=== PATIENT | female | born 1965 | race Caucasian/White ===

== ENCOUNTER 2017-09-12 08:15 | Outpatient (CLI) | payer BC | END 2017-09-12 08:16 | disposition home or self-care (01) | LOC: LABBT 08:15 | PROVIDERS: ATTEND Internal Medicine Cardiovascular Disease | DX: Z01.818 Encounter for other preprocedural examination (principal); I47.1 Supraventricular tachycardia ==

== ENCOUNTER 2017-09-15 06:07 | Day surgery (SDC) | payer BC ==
[2017-09-12 08:40] VITALS: BMI 52.8
[2017-09-15] MEDS ORDERED: Lidocaine 1% w/Epinephrine 1:200K 30 ML VIAL ONE (07:01)
[2017-09-15] MEDS ORDERED: CEFAZOLIN/Water 2 GM/20 ML SYRINGE ONE (11:16)
--- NOTE | 2017-09-15 16:44 | CCL ---
CARDIOLOGY PROCEDURE NOTE: Date: 09/15/17 PREPROCEDURE DIAGNOSIS: Syncope and SVT. PROCEDURE PERFORMED: Removal of implantable loop recorder (LINQ). SUMMARY: Ms. Ibrara is a pleasant 52-year-old female who comes to the catheterization lab for rem oval of a LINQ implantable loop recorder. She had this placed for syncope and was found to have SVT w hich was nonsustained mostly. She was brought to the catheterization lab, prepped and draped in the u sual sterile fashion, consents were signed and verified, and timeout was performed. We then palpated where the device and we made a small incision with a scalpel on top of the device. We were able to gr ab it, but it kept moving in the fatty tissue. There was no capsule formed. We then had to put her un rosio the fluoroscopy machine to be able to see the device. We could see and moving around and we were able to push it up to where the hemostats and we were able to grab it. We were unable to pull it thro ugh the original incision, so we had to make a second incision where it was successfully pulled out w ithout any further issue. Dermabond was applied to the second incision. On the first incision, we put one small suture which will have to be removed in about a week or two. RECOMMENDATIONS Follow up in 1-2 weeks for removal of suture.
== END 2017-09-15 12:06 | disposition home or self-care (01) ==
LOC: CCL 06:07
PROVIDERS: ATTEND Internal Medicine Cardiovascular Disease
PROC: 0JPT02Z Removal of Monitoring Device from Trunk Subcutaneous Tissue and Fascia, Open Approach (ICD-10-PCS; principal; 2017-09-15)
DX: I47.1 Supraventricular tachycardia (principal); Z98.890 Other specified postprocedural states
CPT/HCPCS: 33284

== ENCOUNTER 2017-10-02 08:37 | Outpatient (CLI) | payer BC | END 2017-10-02 08:38 | disposition home or self-care (01) | LOC: BICMAMMO 08:37 | PROVIDERS: ATTEND Family Medicine | DX: Z12.31 Encounter for screening mammogram for malignant neoplasm of breast (principal); Z80.3 Family history of malignant neoplasm of breast | CPT/HCPCS: 77063; 77067 ==

== ENCOUNTER 2018-10-08 11:32 | Outpatient (CLI) | payer BC ==
--- NOTE | 2018-10-08 13:08 | MMO ---
Bilateral MAMMO Bilat Screen [facility]. CLINICAL HISTORY: Patient is 53 years old and is seen for screening. The patient has the following family history of breast cancer: mother. The patient has no personal history of cancer. VIEWS: The views performed were: bilateral craniocaudal with tomosynthesis and bilateral mediolateral oblique with tomosynthesis. FILMS COMPARED: The present examination has been compared to prior imaging studies performed at [facility] on 07/28/2014, 08/02/2015, 08/22/2016 and 10/02/2017. MAMMOGRAM FINDINGS: There are scattered fibroglandular densities. There are multiple stable masses of varying size with circumscribed margins seen in both breasts. There are no suspicious masses, suspicious calcifications, or new areas of architectural distortion. IMPRESSION: THERE IS NO MAMMOGRAPHIC EVIDENCE OF MALIGNANCY. A ROUTINE FOLLOW-UP MAMMOGRAM IN 1 YEAR IS RECOMMENDED. THE RESULTS OF THIS EXAM WERE SENT TO THE PATIENT. ACR BI-RADS Category 2 - Benign finding MAMMOGRAPHY NOTE: 1. A negative mammogram report should not delay a biopsy if a dominant of clinically suspicious mass is present. 2. Approximately 10% to 15% of breast cancers are not detected by mammography. 3. Adenosis and dense breasts may obscure an underlying neoplasm.
== END 2018-10-08 11:33 | disposition home or self-care (01) ==
LOC: BICMAMMO 11:32
PROVIDERS: ATTEND Family Medicine
DX: Z12.31 Encounter for screening mammogram for malignant neoplasm of breast (principal); Z80.3 Family history of malignant neoplasm of breast
CPT/HCPCS: 77063; 77067

== ENCOUNTER 2019-01-11 07:31 | Day surgery (SDC) | payer BC ==
[2019-01-11 08:12] LABS: #Eosinphils 0.1 thou/uL (0.0-0.7); #Lymphocytes 2.1 thou/uL (1.20-3.40); #Monocytes 0.3 thou/uL (0.11-0.59); #Neutrophils 3.8 thou/uL (1.40-6.50); %Basophils 0.4 % (0.0-1.0); %Eosinophils 2.3 % (0.0-10.0); %Lymphocytes 32.9 % (21.0-51.0); %Monocytes 4.9 % (0.0-10.0); %Neutrophils 59.4 % (42.0-75.0); Hemoglobin 15.2 g/dL (12.0-16.0); Mean Corpuscular HGB CONC 33.2 g/dL (32.0-36.0); Mean Corpuscular Hemoglobin 28.4 pg (27.0-31.0); Mean Corpuscular Volume 85.5 fL (78.0-98.0); Mean Platelet Volume 8.9 fL (7.4-10.4); Platelet Count 268 thou/uL (130-400); RBC Distribution Width 12.7 % (11.5-14.5); Red Blood Cell (RBC) Count 5.35 mill/uL (4.20-5.40); White Blood Cell (WBC) Count 6.4 thou/uL (4.8-10.8)
[2019-01-11 08:28] LABS: ALT (SGPT) 23 U/L (8-55); AST (SGOT) 19 U/L (5-34); Albumin 4.5 g/dL (3.5-5.0); Alkaline Phosphatase 118 U/L (40-150); Anion Gap 14 mmol/L (10-20); BUN (Urea Nitrogen) 17 mg/dL (9.8-20.1); Bilirubin, Total 0.5 mg/dL (0.2-1.2); Calc. Creatinine Clearance 0 mL/min (70-130); Calcium 9.7 mg/dL (7.8-10.44); Carbon Dioxide 24 mmol/L (22-29); Chloride 106 mmol/L (98-107); Estimated GFR-MDRD 75; Globulin 3.2 g/dL (2.4-3.5); Glucose 115 mg/dL (70-105); Lipase 20 U/L (8-78); Potassium 4.6 mmol/L (3.5-5.1); Protein, Total 7.7 g/dL (6.0-8.3); Sodium 139 mmol/L (136-145)
[2019-01-11 08:44] LABS: Bilirubin Negative (Negative); Blood, Urine Negative (Negative); Clarity Clear (Clear); Glucose, Urine (Dipstick) Normal (Negative); Leukocyte Negative Leu/uL (Negative); Nitrite Negative (Negative); Protein, Urine (Dipstick) 10 mg/dL (Neg-Trace); Urobilinogen Normal mg/dL (Less than 2)
[2019-01-11] MEDS ORDERED: Ondansetron PF 4 MG/2 ML Vial ONE ×2 (09:32→13:59)
[2019-01-11] MEDS ORDERED: Ketorolac Tromethamine 30 MG/ML VIAL ONE ×2 (09:32→13:14)
--- NOTE | 2019-01-11 10:19 | ULT ---
Right upper quadrant ultrasound: 01/11/2019 COMPARISON: None HISTORY: Right upper quadrant pain TECHNIQUE: Multiplanar grayscale sonographic imaging of the right upper quadrant obtained. FINDINGS: The pancreas is grossly unremarkable, partially obscured by bowel gas. The hepatic parenchyma is heterogeneous and echogenic, suggesting steatosis. This limits assessment f or focal liver lesion and intrahepatic biliary dilatation. The common bile duct size is upper limits of normal, measuring 6-7 mm. Shadowing calcified stones are noted within the gallbladder. There is no gallbladder wall thickening or pericholecystic fluid appreciated. However, the glass blowing lathe operator reports a positive Molina's sign Right kidney measures 11.5 cm in craniocaudal dimension and demonstrates no evidence for stone, hydro nephrosis, or mass lesion. IMPRESSION: Cholelithiasis. As the glass blowing lathe operator reports a positive Molina's sign, acute cholecystitis cannot be excluded. Common bile duct is upper limits of normal in diameter. Findings suggesting hepatic steatosis. If further imaging assessment of the gallbladder is clinically warranted, follow-up hepatobiliary sca n suggested.
[2019-01-11] MEDS ORDERED: Levofloxacin 500 mg/D5W 100 ml Premix Bag ONE (12:21)
[2019-01-11] MEDS ORDERED: Fentanyl 100 MCG/2 ML VIAL ONE ×2 (13:06→13:15)
[2019-01-11] MEDS ORDERED: Bupivacaine HCl 0.5%/Epinephrine 1:200,000/PF 30 ml Vial ONE (13:08)
[2019-01-11] MEDS ORDERED: Scopolamine 1.5 mg/72 hour Patch ONE (13:20)
--- NOTE | 2019-01-11 13:21 | HP ---
HISTORY OF PRESENT ILLNESS: Maria Teresa Ibarra is a 53-year-old female presenting with a third episode of right upper quadrant pain, back radiation. This episode was especially severe and she presents for treatment. She has found in emergency room on ultrasound to have a normal caliber common bile duct, normal liver function test, but multiple gallstones. Her white count was normal 6.4, hemoglobin 15.2. The patient is . She is employed at [employer]. ALLERGIES: NONE. TOBACCO: None. ALCOHOL: None. MEDICATIONS: 1. Omeprazole. 2. Singulair. 3. Losartan/hydrochlorothiazide 100/25 daily. 4. Diltiazem daily. 5. ProAir HFA. PAST SURGICAL HISTORY: Total abdominal hysterectomy, bilateral salpingo-oophorectomy. She is up-to-date on her colonoscopies. PAST MEDICAL HISTORY: Asthma, obesity, [id number] diabetes mellitus, hypertension. REVIEW OF SYSTEMS: Ten-point noncontributory. PHYSICAL EXAMINATION: VITAL SIGNS: Blood pressure 140/72, respiratory rate 18, heart rate 74. HEAD, EARS, EYES, NOSE, AND THROAT: Unremarkable. Sclerae nonicteric. SKIN: Nonjaundiced. EXTREMITIES: Unremarkable. Palpable pulses. No ankle edema. LUNGS: Clear to auscultation. No wheezing. CARDIAC: Regular rate and rhythm without murmur, rub, or gallop. ABDOMEN: Soft. Tenderness in the right upper quadrant with guarding. Positive Molina's. ASSESSMENT AND PLAN: Cholecystitis and cholelithiasis. Recommend laparoscopic video cholecystectomy. Risks of infection, bleeding, visceral and biliary injury discussed. She consents. Job ID: [id number]
[2019-01-11] MEDS ORDERED: ePHEDrine 50 MG/ML VIAL ONE (13:59)
[2019-01-11] MEDS ORDERED: PROPOFOL 200 MG/20 ML VIAL ONE (13:59)
[2019-01-11] MEDS ORDERED: Lidocaine 1% PF 5 ML VIAL ONE (13:59)
[2019-01-11] MEDS ORDERED: Rocuronium Bromide 10 MG/ML (10ML VIAL) ONE (13:59)
[2019-01-11] MEDS ORDERED: Glycopyrrolate 0.2 MG/ML 5 ML SYRINGE ONE (13:59)
--- NOTE | 2019-01-11 20:20 | OP ---
DATE OF PROCEDURE: 01/11/2019 PREOPERATIVE DIAGNOSES: Acute cholecystitis and cholelithiasis; chronic cholecystitis; morbid obesity. POSTOPERATIVE DIAGNOSES: Acute cholecystitis and cholelithiasis; chronic cholecystitis; morbid obesity. PROCEDURE PERFORMED: Laparoscopic video cholecystectomy. ANESTHESIA: General and local 0.5% Marcaine with epinephrine 30 mL. DESCRIPTION OF PROCEDURE: The patient was taken to the operating room, where under general anesthesia, abdomen was prepared with ChloraPrep and draped in routine fashion. The patient is morbidly obese and has a dependent pannus. A supraumbilical incision was made. Pneumoperitoneum to 15 mmHg was obtained with a Veress needle, replacing with a 5 port. Right subxiphoid incision was made and 11 port was placed. Right subcostal incision was made at midclavicular entrance line and a 5 port was placed. The gallbladder was acutely inflamed and distended. Fundus was grasped at the cephalad. Infundibulum was grasped and reflected laterally. Cystic artery and duct dissected free. Critical view obtained. Cystic artery and duct double clipped proximally and divided, and gallbladder dissected free from liver bed obtaining good hemostasis prior to division of the final peritoneal attachments. Gallbladder and contents were removed and submitted to Pathology. Large stone had to be fragmented and removed. Good hemostasis ensured with cautery. Irrigant and pneumoperitoneum were evacuated. All instruments were removed. All skin incisions were approximated with interrupted subdermal 4-0 Monocryl and [place] glue applied. Job ID: [id number]
== END 2019-01-11 16:52 | disposition home or self-care (01) ==
LOC: ERS 07:31 → SDC 12:24
PROVIDERS: ATTEND Specialist
PROC: 0FT44ZZ Resection of Gallbladder, Percutaneous Endoscopic Approach (ICD-10-PCS; principal; 2019-01-11)
DX: K80.13 Calculus of gallbladder with acute and chronic cholecystitis with obstruction (principal); I10 Essential (primary) hypertension; E11.9 Type 2 diabetes mellitus without complications; J45.909 Unspecified asthma, uncomplicated; E66.01 Morbid (severe) obesity due to excess calories; Z68.42 Body mass index [BMI] 45.0-49.9, adult; Z79.84 Long term (current) use of oral hypoglycemic drugs; Z79.899 Other long term (current) drug therapy
CPT/HCPCS: 36415; 76705; 80053; 81003; 83690; 85025; 88304; 93005; J0131; J0670; J1885; J1956; J2001; J2405; J2704; J3010; J3490

== ENCOUNTER 2019-05-11 07:49 | Outpatient (CLI) | payer BC ==
--- NOTE | 2019-05-11 08:51 | MRI ---
MR the lumbar spine without contrast: 05/11/2019 History: Low back pain with right lower extremity radiculopathy COMPARISON: 03/13/2017 TECHNIQUE: Multiplanar multisequence MR images were obtained of lumbar spine without IV contrast FINDINGS: On the basis of 5 lumbar type vertebral bodies, conus medullaris terminates at [id number] level. Sagittal STIR imaging demonstrates no focal area of osseous marrow edema. At T11-T12 there is disc sp ly narrowing with disc desiccation, mild disc bulge, and mild anterior osteophyte formation. Bilateral facet hypertrophy noted as well, with mild bilateral neural foraminal stenosis and mild keysha tral canal stenosis. T12-L1:Mild bilateral facet hypertrophy. No significant central canal or neural foraminal stenosis. L1-2:Mild bilateral facet hypertrophy. Anterior osteophyte formation. No significant central canal or neural foraminal stenosis. L2-3:Mild bilateral facet hypertrophy, right greater than left. No significant central canal or neura l foraminal stenosis. L3-4:Disc space narrowing and disc desiccation with mild disc bulge. No significant central canal ольга nosis. Significant bilateral facet hypertrophy, right greater than left. Mild right neural foraminal stenosis. L4-5:Prominent facet hypertrophy and hypertrophy of the ligamentum flavum, left greater than right. D isc space narrowing with disc desiccation and mild disc bulge. No significant central canal stenosis. Mild bilateral neural foraminal stenosis, right greater than left. L5-S1:Prominent bilateral facet hypertrophy. There is disc space narrowing and disc desiccation with mild bilateral neural foraminal stenosis. No significant central canal stenosis. Image retroperitoneal structures demonstrateno acute findings.. IMPRESSION: Degenerative disease as detailed above.
== END 2019-05-11 07:50 | disposition home or self-care (01) ==
LOC: BICMRI 07:49
PROVIDERS: ATTEND Specialist
DX: M51.17 Intervertebral disc disorders with radiculopathy, lumbosacral region (principal); M51.36 Other intervertebral disc degeneration, lumbar region
CPT/HCPCS: 72148

== ENCOUNTER 2020-09-15 09:08 | Outpatient (CLI) | payer BC | END 2020-09-15 09:09 | disposition home or self-care (01) | LOC: BICMAMMO 09:08 | PROVIDERS: ATTEND Family Medicine | DX: Z12.31 Encounter for screening mammogram for malignant neoplasm of breast (principal); Z80.3 Family history of malignant neoplasm of breast | CPT/HCPCS: 77063; 77067 ==

== ENCOUNTER 2022-01-03 08:06 | Outpatient (CLI) | payer BC | END 2022-01-03 08:07 | disposition home or self-care (01) | LOC: BICMAMMO 08:06 | PROVIDERS: ATTEND Family Medicine | DX: Z12.31 Encounter for screening mammogram for malignant neoplasm of breast (principal); N63.10 Unspecified lump in the right breast, unspecified quadrant; Z80.3 Family history of malignant neoplasm of breast | CPT/HCPCS: 77063; 77067 ==

== ENCOUNTER 2022-01-17 12:39 | Outpatient (CLI) | payer BC | END 2022-01-17 12:40 | disposition home or self-care (01) | LOC: BICMAMMO 12:39 | PROVIDERS: ATTEND Family Medicine | DX: N63.10 Unspecified lump in the right breast, unspecified quadrant (principal) | CPT/HCPCS: G0279 ==

== ENCOUNTER 2023-04-15 10:45 | Outpatient (CLI) | payer OTHER ==
[2023-04-15] MEDS ORDERED: Magnevist 469MG/ML 20 ML VIAL ONE (11:38)
== END 2023-04-15 10:46 | disposition home or self-care (01) ==
LOC: MRI 10:45
PROVIDERS: ATTEND Psychiatry & Neurology Neurology
DX: M48.061 Spinal stenosis, lumbar region without neurogenic claudication (principal); M47.817 Spondylosis without myelopathy or radiculopathy, lumbosacral region; M47.816 Spondylosis without myelopathy or radiculopathy, lumbar region
CPT/HCPCS: 72158